=== PATIENT | female | born 1990 | race Caucasian/White ===

== ENCOUNTER 2017-06-29 12:11 | Emergency (ER) | payer OTHER ==
[2017-06-29 12:22] VITALS: BP 112/71; PULSE 92; RESP 20; TEMP 97.9
--- NOTE | 2017-06-29 12:50 | ED ---
General Adult HPI - General Chief complaint: Extremity Injury, Lower Stated complaint: Foot Pain Time Seen by Provider: 06/29/17 12:25 Source: patient, RN notes reviewed Mode of arrival: ambulatory Limitations: no limitations - History of Present Illness Initial comments: 27-year-old female presents to the emergency department with a chief complaint of left foot pain. Patient states that she recently started. Patient states she is also started walking more as well as doing more serious due to moving. Patient states now every time she stands up she gets this pain in the bottom of her foot. Better at rest. Patient is tender to touch along the bottom of her foot as well. Patient denies any falls traumas or injuries. Patient was concerned due to the patient's discomfort so they thought that they should be evaluated. Patient denies any recent fever, chills, shortness of breath, chest pain, back pain, abdominal pain, nausea vomiting, numbness or tingling, dysuria or hematuria, constipation or diarrhea, headaches or visual changes, or any other current symptoms. - Related Data Previous Rx's Medication Instructions Recorded Ibuprofen [Motrin] 600 mg PO Q6HR PRN #20 tab 06/29/17 Allergies Allergy/AdvReac Type Severity Reaction Status Date / Time Penicillins Allergy Rash/Hives Verified 06/29/17 12:22 Review of Systems ROS Statement: Those systems with pertinent positive or pertinent negative responses have been documented in the HPI. ROS Other: All systems not noted in ROS Statement are negative. Past Medical History Past Medical History: No Reported History History of Any Multi-Drug Resistant Organisms: None Reported Past Surgical History: No Surgical Hx Reported Past Psychological History: No Psychological Hx Reported Smoking Status: Never smoker Past Alcohol Use History: None Reported Past Drug Use History: None Reported General Exam - General Exam Comments Initial Comments: General: The patient is awake and alert, in no distress, and does not appear acutely ill. Neck: The neck is supple, there is no tenderness. Cardiovascular: There is a regular rate and rhythm. No murmur, rub or gallop is appreciated. Respiratory: Lungs are clear to auscultation, respirations are non-labored, breath sounds are equal. No wheezes, stridor, rales, or rhonchi. Musculoskeletal: Patient tach with 2+ positive left lower extremity frontal motion of the left ankle. Patient does have pain to the bottom of the left foot and tenderness to palpation. Tenderness with full flexion of the left foot. Neurological: CN II-XII intact, There are no obvious motor or sensory deficits. Coordination appears grossly intact. Speech is normal. Skin: Skin is warm and dry and no rashes or lesions are noted. Psychiatric: Normal mood and affect. Limitations: no limitations Course Vital Signs 06/29/17 12:21 Temperature 97.9 F Pulse Rate 92 Respiratory 20 Rate Blood Pressure 112/71 O2 Sat by Pulse 100 Oximetry Medical Decision Making - Medical Decision Making 27-year-old female presents emergency 5 chief complaint of left foot pain. At this time patient does appear to plantar fasciitis. Patient's imaging has been reviewed. We discussed half-way for this. We discussed follow-up we discussed return parameters all the patient's questions. They state [facility] management plan will be discharged. - Radiology Data Radiology results: report reviewed, image reviewed Disposition Clinical Impression: Plantar fasciitis of left foot Disposition: HOME SELF-CARE Condition: Stable Instructions: Plantar Fasciitis (ED) Additional Instructions: Please use medication as discussed. Please follow up with family doctor if symptoms have not improved over the next two days. Please return to the emergency room if your symptoms increase or worsen or for any other concerns. Prescriptions: Ibuprofen [Motrin] 600 mg PO Q6HR PRN #20 tab PRN Reason: Pain Referrals: Glendy Magaña MD [Primary Care Provider] - 1-2 days Time of Disposition: 13:01
--- NOTE | 2017-06-29 12:56 | XR ---
EXAMINATION TYPE: XR foot complete LT DATE OF EXAM: 06/29/2017 COMPARISON: NONE HISTORY: Pain TECHNIQUE: Three views are submitted. FINDINGS: The osseous structures are intact and the joint spaces are preserved. There is no acute fracture or dislocation. IMPRESSION: 1. No acute fracture or dislocation. If symptoms persist, follow-up exam in 7 to 10 days could be ob tained.
== END 2017-06-29 13:17 | disposition home or self-care (01) ==
LOC: EC 12:11
DX: M72.2 Plantar fascial fibromatosis (principal); Z88.0 Allergy status to penicillin
CPT/HCPCS: 99283